=== PATIENT | female | born 1995 | race Caucasian/White ===

== ENCOUNTER 2016-11-01 19:10 | Emergency (ER) | payer SELFPAY ==
--- NOTE | 2016-11-01 19:41 | ER Document Report ---
ED Medical Screen (RME) - General Stated Complaint: FALL//ABDOMINAL PAIN Notes: 21 yo female , 8 weeks c/o right lower abdominal pain. fell down stairs, hit lower abdomen. accident occurred 20 min [employer]. no vaginal discharge. + cramping - Related Data Allergies/Adverse Reactions: No Known Allergies Allergy (Unverified 11/01/16 19:35) Physical Exam - Vital signs Vitals: Temp Pulse Resp BP Pulse Ox 97.5 F 100 16 149/75 H 98 11/01/16 19:19 11/01/16 19:19 11/01/16 19:19 11/01/16 19:19 11/01/16 19:19 Course - Vital Signs Vital signs: Temp Pulse Resp BP Pulse Ox 97.5 F 100 16 149/75 H 98 11/01/16 19:19 11/01/16 19:19 11/01/16 19:19 11/01/16 19:19 11/01/16 19:19
--- NOTE | 2016-11-02 00:16 | ER Document Report ---
ED Fall - General Mode of Arrival: Ambulatory Information source: Patient TRAVEL OUTSIDE OF THE [place] IN LAST 30 DAYS: No - HPI Patient complains to provider of: fall Occurred: Just prior to arrival Associated symptoms: Other - See above <XANDER PEARCE - Last Filed: 11/02/16 00:59> <DAVONTEMARCIO ANN - Last Filed: 11/02/16 02:56> - General Chief Complaint: Fall Stated Complaint: FALL//ABDOMINAL PAIN Notes: Patient is a 21 year old female who presents to the emergency department complaining of a fall just prior to arrival. Patient states that she was trying to do multiple things at once when she fell down a flight of stairs on her back and her side. Patient believes she is about 8 weeks but has not had a proper ultrasound performed or had her first check up. Patient complains of some cramping after the fall and denies any vaginal bleeding. Patient reports she has not started taking pre-elpidio vitamins yet. (XANDER PEARCE) - Related data Allergies/Adverse Reactions: No Known Allergies Allergy (Unverified 11/01/16 19:35) Past Medical History - General Information source: Patient - Social History Smoking Status: Unknown if Ever Smoked Family History: Reviewed & Not Pertinent Patient has suicidal ideation: No Patient has homicidal ideation: No Past Surgical History: Reports: Hx Section <XANDER PEARCE - Last Filed: 11/02/16 00:59> Review of Systems - Review of Systems Constitutional: No symptoms reported EENT: No symptoms reported Cardiovascular: No symptoms reported Respiratory: No symptoms reported Gastrointestinal: See HPI, Abdominal pain Genitourinary: No symptoms reported Female Genitourinary: See HPI, . denies: Vaginal bleeding Musculoskeletal: No symptoms reported Skin: No symptoms reported Hematologic/Lymphatic: No symptoms reported Neurological/Psychological: No symptoms reported -: Yes All other systems reviewed and negative <XANDER PEARCE - Last Filed: 11/02/16 00:59> Physical Exam - Vital signs Interpretation: Normal - General General appearance: Appears well, Alert - HEENT Head: Normocephalic, Atraumatic Eyes: Normal Pupils: PERRL - Respiratory Respiratory status: No respiratory distress Chest status: Nontender Breath sounds: Normal Chest palpation: Normal - Cardiovascular Rhythm: Regular Heart sounds: Normal auscultation Murmur: No - Abdominal Inspection: Normal Distension: No distension Bowel sounds: Normal Tenderness: Nontender Organomegaly: No organomegaly - Back Back: Normal, Nontender - Extremities General upper extremity: Normal inspection, Nontender, Normal color, Normal ROM , Normal temperature General lower extremity: Normal inspection, Nontender, Normal color, Normal ROM , Normal temperature, Normal weight bearing. No: Lea's sign - Neurological Neuro grossly intact: Yes Cognition: Normal Orientation: AAOx4 [place] Coma Scale Eye Opening: Spontaneous [place] Coma Scale Verbal: Oriented [place] Coma Scale Motor: Obeys Commands [place] Coma Scale Total: 15 Speech: Normal Motor strength normal: LUE, RUE, LLE, RLE Sensory: Normal - Psychological Associated symptoms: Normal affect, Normal mood - Skin Skin Temperature: Warm Skin Moisture: Dry Skin Color: Normal <MARCIO ARAUZ - Last Filed: 11/02/16 02:56> - Vital signs Vitals: Temp Pulse Resp BP Pulse Ox 97.5 F 100 16 149/75 H 98 11/01/16 19:19 11/01/16 19:19 11/01/16 19:19 11/01/16 19:19 11/01/16 19:19 Course <XANDER PEARCE - Last Filed: 11/02/16 00:59> <MARCIO ARAUZ - Last Filed: 11/02/16 02:56> - Re-evaluation Re-evalutation: 11/02/16 Patient with no symptoms at this time. Bedside ultrasound showing an intrauterine approximately 8 weeks with a heartbeat of 140. Patient is instructed to follow-up with [facility]YS[facility] and take a vitamin. Understands agrees with plan. Stable for discharge. Return if any worsening or concern turning symptoms. Of note, no bleeding or discharge. (MARCIO ARAUZ) - Vital Signs Vital signs: Temp Pulse Resp BP Pulse Ox 98.9 F 85 18 109/90 H 100 11/02/16 00:29 11/02/16 00:29 11/02/16 00:29 11/02/16 00:29 11/02/16 00:29 - Laboratory Laboratory results interpreted by me: 11/01/16 19:53 Beta HCG, Quant 47172.00 H Procedures - Ultrasound/Bedside Ultrasound/Bedside Ultrasound: Other - IUP. FHR 140. +FM <MARCIO ARAUZ - Last Filed: 11/02/16 02:56> Discharge <XANDER PEARCE - Last Filed: 11/02/16 00:59> <MARCIO ARAUZ - Last Filed: 11/02/16 02:56> - Discharge Clinical Impression: Fall (on) (from) other stairs and steps, initial encounter Qualifiers: Weeks of gestation: 8 weeks Qualified Code(s): Z3A.08 - 8 weeks gestation of Condition: Stable Disposition: HOME, SELF-CARE Instructions: ([facility]), Contusion ([facility]) Prescriptions: Dtx195/FA/Omega3/Dha/Fish Oil [ Gummies] 1 each PO DAILY #90 tab.chew Scribe Attestation: 11/02/16 02:55 I personally performed the services described in the documentation, reviewed and edited the documentation which was dictated to the scribe in my presence, and it accurately records my words and actions. (MARCIO ARAUZ) Scribe Documentation - Scribe Written by Liberty:: liberty Sadler, 11/02/16, 0104 acting as scribe for :: Davonte <XANDER PEARCE - Last Filed: 11/02/16 00:59>
[2016-11-02 00:41] VITALS: BP 109/90
== END 2016-11-02 00:35 | disposition home or self-care (01) ==
LOC: ER 19:10
DX: O26.891 Other specified pregnancy related conditions, first trimester (principal); R10.9 Unspecified abdominal pain; W10.9XXA Fall (on) (from) unspecified stairs and steps, initial encounter; Y92.009 Unspecified place in unspecified non-institutional (private) residence as the place of occurrence of the external cause; Z3A.08 8 weeks gestation of pregnancy
CPT/HCPCS: 36415; 84702; 99284

== ENCOUNTER 2016-11-20 16:11 | Emergency (ER) | payer SELFPAY ==
--- NOTE | 2016-11-20 16:51 | ER Document Report ---
ED Medical Screen (RME) - General Chief Complaint: Vaginal Bleeding Stated Complaint: VAGINAL BLEEDING Notes: Patient thinks she had a miscarriage today while at work. She was sitting at her work desk on the telephone when she noticed she had passed some fluid in went to the bathroom and found a lot of clots and blood. She had no prior bleeding or problems with this . She was approximately 12-13 weeks along in the . This was either her second or third , because she's not sure about 1 possible previous . Does not have any significant abdominal pain or cramping. TRAVEL OUTSIDE OF THE [place] IN LAST 30 DAYS: No - Related Data Allergies/Adverse Reactions: No Known Allergies Allergy (Unverified 11/01/16 19:35) Past Medical History Pulmonary Medical History: Reports: Hx Asthma Renal/ Medical History: Denies: Hx Peritoneal Dialysis Past Surgical History: Reports: Hx Section - Immunizations Hx Diphtheria, Pertussis, Tetanus Vaccination: Yes Physical Exam - Vital signs Vitals: Temp Pulse Resp BP Pulse Ox 98.8 F 130 H 16 155/95 H 99 11/20/16 16:39 11/20/16 16:39 11/20/16 16:39 11/20/16 16:39 11/20/16 16:39 Course - Vital Signs Vital signs: Temp Pulse Resp BP Pulse Ox 98.8 F 130 H 16 155/95 H 99 11/20/16 16:39 11/20/16 16:39 11/20/16 16:39 11/20/16 16:39 11/20/16 16:39
[2016-11-20 17:14] LABS: ABSOLUTE EOSINOPHILS # (AUTO) 0.1 10^3/uL (0.0-0.6); ABSOLUTE LYMPHOCYTES (AUTO) 2.4 10^3/uL (0.5-4.7); ABSOLUTE MONOCYTES (AUTO) 0.6 10^3/uL (0.1-1.4); ABSOLUTE NEUT (AUTO) 4.4 10^3/uL (1.7-8.2); BASOPHILS % (AUTO) 0.6 % (0-2); EOSINOPHILS % (AUTO) 1.7 % (0-6); HEMATOCRIT 37.9 % (36.0-47.0); HEMOGLOBIN 13.2 g/dL (12.0-15.5); HGB HCT DIFFERENCE 1.7; LYMPHOCYTES % (AUTO) 32.1 % (13-45); MEAN CORPUSCULAR HEMOGLOBIN 29.3 pg (27.0-33.4); MEAN CORPUSCULAR HGB CONC 34.9 g/dL (32.0-36.0); MEAN CORPUSCULAR VOLUME 84 fl (80-97); MONOCYTES % (AUTO) 7.8 % (3-13); RED CELL DISTRIBUTION WIDTH 13.1 % (11.5-14.0); SEGMENTED NEUTROPHILS % (AUTO) 57.8 % (42-78); WHITE BLOOD COUNT 7.6 10^3/uL (4.0-10.5)
--- NOTE | 2016-11-20 19:10 | ER Document Report ---
ED GI/ - General Mode of Arrival: Ambulatory Information source: Patient TRAVEL OUTSIDE OF THE [place] IN LAST 30 DAYS: No - HPI Patient complains to provider of: Vaginal bleeding Associated symptoms: Other - See above <XANDER PEARCE - Last Filed: 11/20/16 20:27> <MARCIO ARAUZ - Last Filed: 11/20/16 21:14> - General Chief Complaint: Vaginal Bleeding Stated Complaint: VAGINAL BLEEDING Notes: Patient is a 21 year old female, with a past medical history including endometriosis, who presents to the emergency department complaining of vaginal bleeding onset this afternoon. Patient reports she is about 9 weeks and believes she may have miscarried. Patient states she was at work on the phone when she noticed her legs were sticking, when she went to the bathroom she saw many clots and bleeding. 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 (XANDER PEARCE) - Related Data Allergies/Adverse Reactions: No Known Allergies Allergy (Unverified 11/01/16 19:35) Past Medical History - General Information source: Patient - Social History Smoking Status: Unknown if Ever Smoked Chew tobacco use (# tins/day): No Frequency of alcohol use: None Drug Abuse: None Family History: Reviewed & Not Pertinent Patient has suicidal ideation: No Pulmonary Medical History: Reports: Hx Asthma Renal/ Medical History: Reports: Other - hx endometriosis Past Surgical History: Reports: Hx Section - Immunizations Hx Diphtheria, Pertussis, Tetanus Vaccination: Yes <XANDER PEARCE - Last Filed: 11/20/16 20:27> Review of Systems - Review of Systems Constitutional: No symptoms reported EENT: No symptoms reported Cardiovascular: No symptoms reported Respiratory: No symptoms reported Gastrointestinal: No symptoms reported Genitourinary: No symptoms reported Female Genitourinary: See HPI, Vaginal bleeding Musculoskeletal: No symptoms reported Skin: No symptoms reported Hematologic/Lymphatic: No symptoms reported Neurological/Psychological: No symptoms reported -: Yes All other systems reviewed and negative <XANDER PEARCE - Last Filed: 11/20/16 20:27> Physical Exam <XANDER PEARCE - Last Filed: 11/20/16 20:27> - Vital signs Interpretation: Normal - General General appearance: Appears well, Alert - HEENT Head: Normocephalic, Atraumatic Eyes: Normal Pupils: PERRL - Respiratory Respiratory status: No respiratory distress Chest status: Nontender Breath sounds: Normal Chest palpation: Normal - Cardiovascular Rhythm: Regular Heart sounds: Normal auscultation Murmur: No - Abdominal Inspection: Normal Distension: No distension Bowel sounds: Normal Tenderness: Tender - Mild suprapubic Organomegaly: No organomegaly - Back Back: Normal, Nontender - Extremities General upper extremity: Normal inspection, Nontender, Normal color, Normal ROM , Normal temperature General lower extremity: Normal inspection, Nontender, Normal color, Normal ROM , Normal temperature, Normal weight bearing. No: Lea's sign - Neurological Neuro grossly intact: Yes Cognition: Normal Orientation: AAOx4 [place] Coma Scale Eye Opening: Spontaneous [place] Coma Scale Verbal: Oriented [place] Coma Scale Motor: Obeys Commands [place] Coma Scale Total: 15 Speech: Normal Motor strength normal: LUE, RUE, LLE, RLE Sensory: Normal - Psychological Associated symptoms: Normal affect, Normal mood - Skin Skin Temperature: Warm Skin Moisture: Dry Skin Color: Normal <MARCIO ARAUZ - Last Filed: 11/20/16 21:14> - Vital signs Vitals: Temp Pulse Resp BP Pulse Ox 98.8 F 130 H 16 155/95 H 99 11/20/16 16:39 11/20/16 16:39 11/20/16 16:39 11/20/16 16:39 11/20/16 16:39 - Genitourinary Notes: Patient refuses exam. She will go see an [facility]. (MARCIO ARAUZ) Course - Laboratory Result Diagrams: 11/20/16 16:55 <XANDER PEARCE - Last Filed: 11/20/16 20:27> - Laboratory Result Diagrams: 11/20/16 16:55 - Diagnostic Test Radiology reviewed: Image reviewed, Reports reviewed <MARCIO ARAUZ - Last Filed: 11/20/16 21:14> - Re-evaluation Re-evalutation: 11/20/16 Patient had an ultrasound that is consistent with demise. Patient is O positive and does not require rhogam. Patient does not want a pelvic exam this time. She'll be discharged home to follow-up with [facility]. Patient has been given a copy of her blood work and ultrasound. She will be given pain medication as well. Return if any worsening or concerning symptoms. Not tachycardic at this time. (MARCIO ARAUZ) - Vital Signs Vital signs: Temp Pulse Resp BP Pulse Ox 99.5 F 87 20 125/72 100 11/20/16 19:23 11/20/16 19:23 11/20/16 19:23 11/20/16 19:23 11/20/16 19:23 - Laboratory Laboratory results interpreted by me: 11/20/16 11/20/16 16:55 19:02 Beta HCG, Quant 1322.80 H Urine Blood LARGE H Ur Leukocyte Esterase TRACE H Discharge <XANDER PEARCE - Last Filed: 11/20/16 20:27> <MARCIO ARAUZ - Last Filed: 11/20/16 21:14> - Discharge Clinical Impression: Miscarriage Condition: Stable Disposition: HOME, SELF-CARE Instructions: Miscarriage Impending ([facility]), Miscarriage ([facility]) Prescriptions: Hydrocodone/Acetaminophen [Lortab 7.5-325 mg Tablet] 1 each PO BIDP PRN #14 tablet PRN Reason: Referrals: [facility] [Provider Group] - Follow up in 3-5 days Scribe Attestation: 11/20/16 21:14 I personally performed the services described in the documentation, reviewed and edited the documentation which was dictated to the scribe in my presence, and it accurately records my words and actions. (MARCIO ARAUZ) Scribe Documentation - Scribe Written by Liberty:: liberty Sadler, 11/20/162029 acting as scribe for :: Apoorva <XANDER PEARCE - Last Filed: 11/20/16 20:27>
[2016-11-20 19:24] VITALS: BP 125/72
[2016-11-20 19:29] LABS: APPEARANCE,URINE CLEAR; BILIRUBIN,URINE NEGATIVE (NEGATIVE); GLUCOSE, URINE NEGATIVE (NEGATIVE); KETONES,URINE NEGATIVE (NEGATIVE); LEUKOCYTE ESTERASE,URINE TRACE (NEGATIVE); NITRITE,URINE NEGATIVE (NEGATIVE); PROTEIN,URINE NEGATIVE (NEGATIVE); URINE SPECIFIC GRAVITY 1.005; UROBILINOGEN,URINE NEGATIVE mg/dL (<2.0)
== END 2016-11-20 20:04 | disposition home or self-care (01) ==
LOC: ER 16:11
DX: O03.9 Complete or unspecified spontaneous abortion without complication (principal)
CPT/HCPCS: 36415; 76801; 81001; 84702; 85025; 86900; 86901; 99284

== ENCOUNTER 2017-07-10 21:29 | Emergency (ER) | payer MEDICAID ==
[2017-07-10 22:00] VITALS: BP 123/69
--- NOTE | 2017-07-10 22:33 | ER Document Report ---
HPI - HPI Patient complains to provider of: Anal pain Onset: Last week Onset/Duration: Gradual Pain Level: 3 Context: 22-year-old female that has been having 3-4 episodes of diarrhea per day for a week is now complaining of anal pain. She assumed it was a hemorrhoid. No abdominal pain. No fever or chills. No recent antibiotics. Hemorrhoid cream is not helping. Abstinent for over 6 months. No history of herpes. Associated Symptoms: None Exacerbated by: Other - Wiping with toilet paper Relieved by: Denies - ROS ROS below otherwise negative: Yes Systems Reviewed and Negative: Yes All other systems reviewed and negative Past Medical History - General Information source: Patient - Social History Smoking Status: Never Smoker Frequency of alcohol use: None Drug Abuse: None Lives with: Family Family History: Reviewed & Not Pertinent Pulmonary Medical History: Reports: Hx Asthma Renal/ Medical History: Denies: Hx Peritoneal Dialysis Past Surgical History: Reports: Hx Section - Immunizations Hx Diphtheria, Pertussis, Tetanus Vaccination: Yes Vertical Provider Document - CONSTITUTIONAL Agree With Documented VS: Yes Exam Limitations: No Limitations General Appearance: No Apparent Distress - INFECTION CONTROL TRAVEL OUTSIDE OF THE [place] IN LAST 30 DAYS: No - HEENT HEENT: Normocephalic - NECK Neck: Supple. negative: Lymphadenopathy-Left, Lymphadenopathy-Right - RESPIRATORY Respiratory: Breath Sounds Normal, No Respiratory Distress O2 Sat by Pulse Oximetry: 98 - CARDIOVASCULAR Cardiovascular: Regular Rate, Regular Rhythm - GI/ABDOMEN Gastrointestinal: Abdomen Non-Tender - BACK Back: Normal Inspection - MUSCULOSKELETAL/EXTREMETIES Musculoskeletal/Extremeties: MAEW, FROM - NEURO Level of Consciousness: Awake, Alert - DERM Integumentary: Rash - perianal shallow erythematous lesions, non tender, non engorged external hemorrhoid Course - Vital Signs Vital signs: Temp Pulse Resp BP Pulse Ox 99.4 F 108 H 16 123/69 98 07/10/17 21:55 07/10/17 21:55 07/10/17 21:55 07/10/17 21:55 07/10/17 21:55 Discharge - Discharge Clinical Impression: diarrhea, small external hemorrhoid, Perianal excoriation Condition: Good Disposition: HOME, SELF-CARE Instructions: Contact Dermatitis ([facility]), Ciprofloxacin ([facility]), Diarrhea, Nonspecific ([facility]), Family Physicians / Practices, Gastroenterology, Hemorrhoids ([facility]) Additional Instructions: rinse anal skin pat dry put the hydrocortisone cream on then put onthe zinc oxide cream thickly cipro for three days to er if worse see gastroenterolgist if persists Prescriptions: Ciprofloxacin HCl [Cipro 500 mg Tablet] 500 mg PO BID #5 tablet Referrals: OMAIRA MILLER MD [ACTIVE STAFF] - Follow up as needed
[2017-07-10] MEDS ORDERED: CIPROFLOXACIN HCL 500 MG TABLET PO ONE (22:42)
[2017-07-10] MEDS ORDERED: ZINC OXIDE 20% OINTMENT 28.35 GM TP ONE (22:43)
[2017-07-10] MEDS ORDERED: HYDROCORTISONE 1% CREAM 28.35 GM TP ONE (22:43)
[2017-07-10] MEDS ORDERED: HYDROCORTISONE 1% CREAM 28.35 GM ONE (23:09)
[2017-07-10] MEDS ORDERED: ZINC OXIDE 20% OINTMENT 28.35 GM ONE (23:09)
== END 2017-07-10 23:19 | disposition home or self-care (01) ==
LOC: ER 21:29
DX: R19.7 Diarrhea, unspecified (principal); K64.4 Residual hemorrhoidal skin tags; K62.89 Other specified diseases of anus and rectum
CPT/HCPCS: 99282; J3490

== ENCOUNTER 2017-07-16 17:43 | Emergency (ER) | payer MEDICAID ==
[2017-07-16 18:05] VITALS: BP 138/81
[2017-07-16] MEDS ORDERED: LIDOCAINE 1% INJ-PF (10 MG/ML) 30 ML SDV INJ ONE (20:50)
[2017-07-16] MEDS ORDERED: AZITHROMYCIN 250 MG TABLET PO ONE (20:50)
[2017-07-16] MEDS ORDERED: CEFTRIAXONE INJ 250 MG VIAL IM ONE (20:50)
[2017-07-16] MEDS ORDERED: ACYCLOVIR 200 MG CAPSULE PO ONE (20:50)
--- NOTE | 2017-07-16 20:56 | ER Document Report ---
ED Skin Rash/Insect Bite/Abscs - General Chief Complaint: Rash Stated Complaint: RASH Time Seen by Provider: 07/16/17 20:39 Mode of Arrival: Ambulatory Information source: Patient Notes: 22-year-old female presents to ED for complaint of rash to the labia buttocks and now thighs. She states it has been there for about 2-1/2 weeks. She states she was seen about a week ago and was told that she had a GI infection and was put on medicine and the rash is actually gotten worse. She states she also is about 4 days late for. Says she took a home test and it was positive today. TRAVEL OUTSIDE OF THE [place] IN LAST 30 DAYS: No - HPI Patient complains to provider of: Skin rash/lesion - Labia buttocks and thighs Onset: Other Onset/Duration: Gradual - 2-1/2 weeks, Worse Quality of pain: Sharp, Throbbing Severity: Moderate Pain Level: 2 Skin Character: Vesicular - Vesicular type rash to the labia buttocks and thighs Quality of rash: Itchy, Painful Identify cause: No Exacerbated by: Denies Relieved by: Denies Similar symptoms previously: Yes Recently seen / treated by doctor: Yes - Related Data Allergies/Adverse Reactions: No Known Allergies Allergy (Verified 07/16/17 17:44) Past Medical History - General Information source: Patient - Social History Smoking Status: Never Smoker Cigarette use (# per day): No Chew tobacco use (# tins/day): No Smoking Education Provided: No Frequency of alcohol use: None Drug Abuse: None Lives with: Family Family History: Reviewed & Not Pertinent Patient has suicidal ideation: No Patient has homicidal ideation: No - Past Medical History Cardiac Medical History: Reports: None Pulmonary Medical History: Reports: Hx Asthma EENT Medical History: Reports: None Neurological Medical History: Reports: None Endocrine Medical History: Reports: None Renal/ Medical History: Reports: None Malignancy Medical History: Reports: None GI Medical History: Reports: None Musculoskeltal Medical History: Reports None Skin Medical History: Reports None Psychiatric Medical History: Reports: None Traumatic Medical History: Reports: None Infectious Medical History: Reports: None Past Surgical History: Reports: Hx Section - Immunizations Immunizations up to date: Yes Hx Diphtheria, Pertussis, Tetanus Vaccination: Yes Review of Systems - Review of Systems Constitutional: No symptoms reported EENT: No symptoms reported Cardiovascular: No symptoms reported Respiratory: No symptoms reported Gastrointestinal: No symptoms reported Genitourinary: No symptoms reported Female Genitourinary: Last menstrual period - Patient is 4 days late for menstrual cycle., Other - Vesicular rash to labia buttocks and thighs Musculoskeletal: No symptoms reported Skin: No symptoms reported Hematologic/Lymphatic: No symptoms reported Neurological/Psychological: No symptoms reported Physical Exam - Vital signs Vitals: Temp Pulse Resp BP Pulse Ox 100.1 F 114 H 17 138/81 H 97 07/16/17 18:04 07/16/17 18:04 07/16/17 18:04 07/16/17 18:04 07/16/17 18:04 Interpretation: Normal - General General appearance: Appears well, Alert - HEENT Head: Normocephalic, Atraumatic Eyes: Normal Pupils: PERRL - Respiratory Respiratory status: No respiratory distress Chest status: Nontender Breath sounds: Normal Chest palpation: Normal - Cardiovascular Rhythm: Regular Heart sounds: Normal auscultation Murmur: No - Abdominal Inspection: Normal Distension: No distension Bowel sounds: Normal Tenderness: Nontender Organomegaly: No organomegaly - Genitourinary External exam: Lesions - Vesicular herpetic type rash to the labia buttocks and thighs - Back Back: Normal, Nontender - Extremities General upper extremity: Normal inspection, Nontender, Normal color, Normal ROM , Normal temperature General lower extremity: Normal inspection, Nontender, Normal color, Normal ROM , Normal temperature, Normal weight bearing. No: Lea's sign - Neurological Neuro grossly intact: Yes Cognition: Normal Orientation: AAOx4 [place] Coma Scale Eye Opening: Spontaneous [place] Coma Scale Verbal: Oriented [place] Coma Scale Motor: Obeys Commands [place] Coma Scale Total: 15 Speech: Normal Motor strength normal: LUE, RUE, LLE, RLE Sensory: Normal - Psychological Associated symptoms: Normal affect, Normal mood - Skin Skin Temperature: Warm Skin Moisture: Dry Skin Color: Normal Course - Re-evaluation Re-evalutation: 07/17/17 02:15 Patient was treated with acyclovir, azithromycin, and Rocephin. Patient's urine was positive for . Her urine was very dirty and was supposed to be a clean catch but it had too many squamous cells. Patient has no urinary symptoms such is frequency urgency or pain with urination except for to the external area where the blisters are. Patient instructed to follow-up with OB/ [facility] in a primary doctor and if she develops any urinary symptoms to be seen right away. Viral culture sent for herpes. Patient left before her GC and chlamydia results were back and she is positive for chlamydia but she has been treated. - Vital Signs Vital signs: Temp Pulse Resp BP Pulse Ox 100.1 F 114 H 17 138/81 H 97 07/16/17 18:04 07/16/17 18:04 07/16/17 18:04 07/16/17 18:04 07/16/17 18:04 - Laboratory Laboratory results interpreted by me: 07/16/17 07/16/17 20:49 20:57 Urine Ketones 20 H Urine Urobilinogen 2.0 H Ur Leukocyte Esterase LARGE H Urine HCG, Qual POSITIVE H Chlamydia DNA (PCR) DETECTED H Discharge - Discharge Clinical Impression: Genital herpes Qualifiers: Herpes simplex infection site: unspecified Qualified Code(s): A60.00 - Herpesviral infection of urogenital system, unspecified Qualifiers: Weeks of gestation: unspecified Qualified Code(s): Z34.90 - Encounter for supervision of normal , unspecified, unspecified trimester Condition: Stable Disposition: HOME, SELF-CARE Instructions: [facility] [place] Additional Instructions: Genital Herpes Your exam suggests that you have a herpes infection. A culture can confirm the diagnosis. Herpes is caused by a virus, and can be transmitted sexually. After the initial infection has healed, the virus often erupts at the same location from time to time. Herpes can be treated with anti-viral medication. The medicine can be used as pills or ointment. It's most effective if started with the first symptoms of the attack. It is not a "cure" -- it simply shortens the length of the illness. If this is not your first attack, the medicine may not help you. In the female, herpes can infect the baby as it passes through the canal, causing a life-threatening disease. You should inform the crop roller that you've had herpes should you (or your spouse) become . Sexual contact should be avoided any time the sores are present, but the virus may be contagious even at other times. The use of condoms may help prevent infection in your partner. Acyclovir Acyclovir (Zovirax) is used to treat infections caused by the Herpes family of viruses. It's available as capsules or ointment. Zovirax is most effective if started at the first sign of the viral outbreak. It can decrease the severity and duration of symptoms. However, it doesn't eliminate the virus from the body completely. If you're prone to repeated outbreaks of herpes, you'll continue to have attacks. Apply ointment with a disposable glove or finger-cot to avoid spreading the virus with your finger. If pills have been prescribed, take them for the full recommended course. Occasionally, mild nausea or headaches may occur. Call the doctor if you develop wheezing, itching, rash, shortness of breath , or lightheadedness. VAGINITIS: Your exam shows that you have vaginitis, a vaginal infection. The infection can be caused by a many different organisms, including trichomonas or Gardnerella. The usual symptoms are vaginal irritation and discharge. The treatment is usually antibiotics such as Flagyl. Laboratory tests can determine which germ is responsible. Use the medication as prescribed. Because this infection can be transmitted sexually, your sexual partner may need to be checked and treated also. If your physician has not discussed this with you, please check before resuming sexual relations. If a culture shows gonorrhea or chlamydia, the infection must be reported to the health department. Call the doctor if you develop pelvic pain, fever, or problems with urination, or if you don't improve as expected. CEPHALOSPORINS: An antibiotic of the cephalosporin class has been prescribed. This type of antibiotic covers a wide variety of infections, including those of the skin, lungs, middle ear, and urinary tract. This antibiotic is somewhat similar to the penicillin family. In rare cases , a person who is allergic to penicillin will also be allergic to this medication. If you have had a severe allergic reaction to penicillin, and have not taken this antibiotic since that time, notify your doctor. Antibiotics which cover many germs ("broad spectrum" antibiotics) are more likely to cause diarrhea or "yeast" infections. Women prone to vaginal yeast problems may suffer an attack after taking this antibiotic. In infants, oral thrush (white spots "stuck" on the cheek) or yeast diaper rash may result. See your doctor if these problems occur. Call the doctor at once if you develop hives, itching, shortness of breath , or lightheadedness. AZITHROMYCIN: Azithromycin (Zithromax) is a broad spectrum antibiotic in the same class as erythromycin. It can treat a variety of bacterial infections, but is most frequently used for respiratory infections. Azithromycin is extremely long-lasting. It accumulates in body tissues and continues to kill bacteria for many days. In order to improve absorption, Azithromycin should be taken at least one hour before or two hours after a meal. It does not have the same strong tendency to upset the stomach as erythromycin and is usually very well tolerated. Patients who have had a rash or other true allergic reactions to erythromycin should not take this medication. Call if you develop gastrointestinal distress, severe diarrhea, rash, hives, itching, or shortness of breath. FOLLOW-UP CARE: If you have been referred to a physician for follow-up care, call the physician s office for an appointment as you were instructed or within the next two days. If you experience worsening or a significant change in your symptoms, notify the physician immediately or return to the Emergency Department at any time for re-evaluation. Prescriptions: Acyclovir 800 mg PO BID #14 tablet Forms: Elevated Blood Pressure Referrals: [facility] [Provider Group] - Follow up as needed
[2017-07-16 21:29] LABS: APPEARANCE,URINE CLOUDY; BILIRUBIN,URINE NEGATIVE (NEGATIVE); GLUCOSE, URINE NEGATIVE (NEGATIVE); KETONES,URINE 20 mg/dL (NEGATIVE); LEUKOCYTE ESTERASE,URINE LARGE (NEGATIVE); NITRITE,URINE NEGATIVE (NEGATIVE); PROTEIN,URINE NEGATIVE (NEGATIVE); URINE SPECIFIC GRAVITY 1.024
== END 2017-07-16 22:22 | disposition home or self-care (01) ==
LOC: ER 17:43
DX: A60.00 Herpesviral infection of urogenital system, unspecified (principal); Z32.01 Encounter for pregnancy test, result positive
CPT/HCPCS: 99283; 96372; 87210; 81025; 81001; 87250; 87491; 87591; Q0144; J3490; J0696

== ENCOUNTER 2017-08-01 20:25 | Emergency (ER) | payer SELFPAY ==
[2017-08-01 22:36] LABS: ABSOLUTE BASOPHILS # (AUTO) 0.1 10^3/uL (0.0-0.2); ABSOLUTE EOSINOPHILS # (AUTO) 0.1 10^3/uL (0.0-0.6); ABSOLUTE LYMPHOCYTES (AUTO) 3.4 10^3/uL (0.5-4.7); ABSOLUTE NEUT (AUTO) 8.8 10^3/uL (1.7-8.2); BASOPHILS % (AUTO) 0.9 % (0-2); EOSINOPHILS % (AUTO) 0.7 % (0-6); HEMATOCRIT 38.1 % (36.0-47.0); HEMOGLOBIN 12.8 g/dL (12.0-15.5); HGB HCT DIFFERENCE 0.3; LYMPHOCYTES % (AUTO) 25.1 % (13-45); MEAN CORPUSCULAR HEMOGLOBIN 28.6 pg (27.0-33.4); MEAN CORPUSCULAR HGB CONC 33.6 g/dL (32.0-36.0); MEAN CORPUSCULAR VOLUME 85 fl (80-97); MONOCYTES % (AUTO) 7.6 % (3-13); RED BLOOD COUNT 4.46 10^6/uL (3.72-5.28); RED CELL DISTRIBUTION WIDTH 14.5 % (11.5-14.0); SEGMENTED NEUTROPHILS % (AUTO) 65.7 % (42-78); WHITE BLOOD COUNT 13.4 10^3/uL (4.0-10.5)
--- NOTE | 2017-08-01 22:38 | ER Document Report ---
ED GI/ - General Chief Complaint: Abdominal Pain Stated Complaint: STOMACH PAIN Time Seen by Provider: 08/01/17 22:23 Notes: Patient is a 22-year-old female, , that comes emergency department for chief complaint of lower abdominal/pelvic pain and vaginal spotting that started this evening. She states she is about 10-14 weeks , has had a positive urine test. She denies fever or chills, she states she has intermittent vomiting but this is normal current , she denies flank pain, dysuria, vaginal discharge. Past medical history of and first trimester miscarriages. TRAVEL OUTSIDE OF THE [place] IN LAST 30 DAYS: No - Related Data Allergies/Adverse Reactions: No Known Allergies Allergy (Verified 07/16/17 17:44) Past Medical History - General Information source: Patient - Social History Smoking Status: Never Smoker Frequency of alcohol use: None Drug Abuse: None Lives with: Family Family History: Reviewed & Not Pertinent Pulmonary Medical History: Reports: Hx Asthma Renal/ Medical History: Denies: Hx Peritoneal Dialysis Past Surgical History: Reports: Hx Section - Immunizations Immunizations up to date: Yes Hx Diphtheria, Pertussis, Tetanus Vaccination: Yes Review of Systems - Review of Systems Constitutional: No symptoms reported EENT: No symptoms reported Cardiovascular: No symptoms reported Respiratory: No symptoms reported Gastrointestinal: See HPI Genitourinary: See HPI Female Genitourinary: See HPI Musculoskeletal: No symptoms reported Skin: No symptoms reported Hematologic/Lymphatic: No symptoms reported Neurological/Psychological: No symptoms reported Physical Exam - Vital signs Vitals: Temp Pulse Resp BP Pulse Ox 99.2 F 87 18 141/81 H 100 08/01/17 20:44 08/01/17 20:44 08/01/17 20:44 08/01/17 20:44 08/01/17 20:44 Interpretation: Normal - General General appearance: Appears well, Alert In distress: None - HEENT Head: Normocephalic, Atraumatic Eyes: Normal Pupils: PERRL - Respiratory Respiratory status: No respiratory distress Chest status: Nontender Breath sounds: Normal Chest palpation: Normal - Cardiovascular Rhythm: Regular Heart sounds: Normal auscultation Murmur: No - Abdominal Inspection: Normal Distension: No distension Bowel sounds: Normal Tenderness: Tender - Minimal mid to right sided abdominal/pelvic tenderness, nonspecific, no guarding, no rigidity, no rebound tenderness Organomegaly: No organomegaly - Back Back: Normal, Nontender. No: Tender, CVA tenderness - Extremities General upper extremity: Normal inspection, Nontender, Normal color, Normal ROM , Normal temperature General lower extremity: Normal inspection, Nontender, Normal color, Normal ROM , Normal temperature, Normal weight bearing. No: Lea's sign - Neurological Neuro grossly intact: Yes Cognition: Normal Orientation: AAOx4 [place] Coma Scale Eye Opening: Spontaneous [place] Coma Scale Verbal: Oriented [place] Coma Scale Motor: Obeys Commands [place] Coma Scale Total: 15 Speech: Normal Motor strength normal: LUE, RUE, LLE, RLE Sensory: Normal - Psychological Associated symptoms: Normal affect, Normal mood - Skin Skin Temperature: Warm Skin Moisture: Dry Skin Color: Normal Course - Re-evaluation Re-evalutation: CBC shows mild leukocytosis, nonspecific. There is mild mid to lower abdominal tenderness without guarding. Patient is smiling, talkative, well-appearing. Low suspicion of acute abdomen. Urinalysis unremarkable. HCG is elevated appropriately. Chemistry generally unremarkable. Ultrasound showing intrauterine at 6 weeks 6 days with subchorionic hemorrhage. No other abnormalities noted. On reevaluation patient continues to be very well-appearing, still has benign abdomen. I suspect her symptoms are from the subchorionic hemorrhage. RhoGam not indicated. Discussed all results with patient in detail. Patient took everything in stride, seems very familiar with this type of situation, states she understands follow-up and return precautions. - Vital Signs Vital signs: Temp Pulse Resp BP Pulse Ox 99.2 F 100 18 128/92 H 99 08/01/17 20:44 08/02/17 01:22 08/01/17 20:44 08/02/17 01:22 08/02/17 01:22 - Laboratory Result Diagrams: 08/01/17 22:25 08/01/17 22:25 Laboratory results interpreted by me: 08/01/17 08/01/17 08/01/17 22:25 22:25 22:45 WBC 13.4 H RDW 14.5 H Absolute Neutrophils 8.8 H BUN 6 L Beta HCG, Quant 72349.00 H Urine Ketones TRACE H Ur Leukocyte Esterase TRACE H Urine Ascorbic Acid 40 H Discharge - Discharge Clinical Impression: Vaginal bleeding before 22 weeks gestation, Pelvic cramping Condition: Stable Disposition: HOME, SELF-CARE Additional Instructions: Your ultrasound shows a living in the uterus, also shows a subchorionic hemorrhage, this is most likely the cause of your discomfort. Perform pelvic rest, avoid intercourse, jumping, running, lifting, or any significant physical activity until cleared to do so by POUL[employer] HATCHERY MAN. Your blood type is O+. Return to the emergency department for any concerning or worsening symptoms including severe pain, passing out, swelling of the abdomen, fever, or any other concerning symptoms.
[2017-08-01 22:51] LABS: ALANINE AMINOTRANSFERASE 29 U/L (9-52); ALBUMIN 4.2 g/dL (3.5-5.0); ALKALINE PHOSPHATASE 78 U/L (38-126); ANION GAP 12 (5-19); ASPARTATE AMINO TRANSFERASE 21 U/L (14-36); BILIRUBIN,DIRECT 0.2 mg/dL (0.0-0.4); BILIRUBIN,TOTAL 0.4 mg/dL (0.2-1.3); BLOOD UREA NITROGEN 6 mg/dL (7-20); CALCIUM 9.3 mg/dL (8.4-10.2); CARBON DIOXIDE 22 mmol/L (22-30); CHLORIDE 105 mmol/L (98-107); CREATININE RESULT 0.53 mg/dL (0.52-1.25); GLUCOSE 90 mg/dL (75-110); LIPASE 75.9 U/L (23-300); SODIUM 138.6 mmol/L (137-145); TOTAL PROTEIN 7.3 g/dL (6.3-8.2)
[2017-08-01 23:24] LABS: APPEARANCE,URINE SLIGHTLY-CLOUDY; BILIRUBIN,URINE NEGATIVE (NEGATIVE); CALCIUM OXALATE CRYSTALS,URINE FEW /HPF; GLUCOSE, URINE NEGATIVE (NEGATIVE); KETONES,URINE TRACE mg/dL (NEGATIVE); LEUKOCYTE ESTERASE,URINE TRACE (NEGATIVE); NITRITE,URINE NEGATIVE (NEGATIVE); PROTEIN,URINE NEGATIVE (NEGATIVE); URINE SPECIFIC GRAVITY 1.024; UROBILINOGEN,URINE NEGATIVE mg/dL (<2.0)
--- NOTE | 2017-08-02 00:39 | RADIOLOGY REPORT (SQ) ---
EXAM DESCRIPTION: U/S OB TRANSVAG W/DOPPLER CLINICAL HISTORY: 22 years, Female, pelvic pain, vaginal bleeding quantitative beta-hC COMPARISON: 11/20/2016. TECHNIQUE: Transvaginal LIMITATIONS: None. FINDINGS: Living intrauterine fetus with crown-rump length of 0.9 cm corresponds with a gestational age of six weeks and six days, KULWINDER of 03/21/2018, and cardiac activity of 123 bpm. There is a 1.9 x 1.3 x 0.6 and measures subchorionic hemorrhage. Cervical length is 2.6 cm. Nabothian cysts. 3.4 cm right ovary with 1.9 cm corpus luteal cyst (for which no followup imaging recommended) and 2.6 cm left ovary appear otherwise unremarkable. IMPRESSION: Living intrauterine gestation measures 6w 6d with KULWINDER of 03/21/2018; there is a 1.9 cm perigestational hemorrhage. 2011 [employer]- All Rights Reserved
[2017-08-02 01:28] VITALS: BP 128/92
== END 2017-08-02 01:29 | disposition home or self-care (01) ==
LOC: ER 20:25
DX: O20.8 Other hemorrhage in early pregnancy (principal); O26.891 Other specified pregnancy related conditions, first trimester; R10.2 Pelvic and perineal pain; O21.9 Vomiting of pregnancy, unspecified; O99.111 Other diseases of the blood and blood-forming organs and certain disorders involving the immune mechanism complicating pregnancy, first trimester; D72.829 Elevated white blood cell count, unspecified; O99.511 Diseases of the respiratory system complicating pregnancy, first trimester; J45.909 Unspecified asthma, uncomplicated; Z3A.01 Less than 8 weeks gestation of pregnancy
CPT/HCPCS: 36415; 76817; 80053; 81001; 83690; 84702; 85025; 86900; 86901; 93976; 99284

== ENCOUNTER 2017-08-08 10:42 | Emergency (ER) | payer SELFPAY ==
--- NOTE | 2017-08-08 11:16 | ER Document Report ---
ED Medical Screen (RME) - General Chief Complaint: Vag Bleeding, +preg <12wks Stated Complaint: VAGINAL BLEEDING Notes: 22-year-old female currently in her first trimester here with complaints of continued vaginal spotting and lower abdominal pain. She denies any blood clots or tissue and states "it is just spotting". Per chart review, she had an ultrasound that did show a [place]-gestational bleed on August 01, 2017. Her hCG at that time was approximately 50,000. She has a history of multiple first trimester miscarriages 2. EXAM: Minimal suprapubic TTP No peritoneal signs TRAVEL OUTSIDE OF THE [place] IN LAST 30 DAYS: No - Related Data Allergies/Adverse Reactions: latex Allergy (Verified 08/08/17 11:04) Past Medical History - Social History Frequency of alcohol use: None Drug Abuse: None Pulmonary Medical History: Reports: Hx Asthma Renal/ Medical History: Denies: Hx Peritoneal Dialysis Past Surgical History: Reports: Hx Section, Hx Tonsillectomy - adenoids - Immunizations Immunizations up to date: Yes Hx Diphtheria, Pertussis, Tetanus Vaccination: Yes Physical Exam - Vital signs Vitals: Temp Pulse Resp BP Pulse Ox 98.5 F 89 16 137/79 H 98 08/08/17 10:47 08/08/17 10:47 08/08/17 10:47 08/08/17 10:47 08/08/17 10:47 Course - Vital Signs Vital signs: Temp Pulse Resp BP Pulse Ox 98.5 F 89 16 137/79 H 98 08/08/17 10:47 08/08/17 10:47 08/08/17 10:47 08/08/17 10:47 08/08/17 10:47
--- NOTE | 2017-08-08 11:41 | ER Document Report ---
ED General - General Mode of Arrival: Ambulatory Information source: Patient TRAVEL OUTSIDE OF THE [place] IN LAST 30 DAYS: No <IESHA HYMAN - Last Filed: 08/08/17 13:54> <GUNNER SWAN - Last Filed: 08/08/17 14:42> - General Chief Complaint: Vag Bleeding, +preg <12wks Stated Complaint: VAGINAL BLEEDING Time Seen by Provider: 08/08/17 11:20 Notes: Patient is a 22 year old female with a history of miscarriages presents to the emergency department complaining of lower abdominal pain and vaginal bleeding while . Patient was last seen in the emergency department on 2016 for similar issues and told to return if the symptoms worsened. Patient states that her vaginal bleeding is the same and describes it as spotting although the abdominal pain has worsened. Patient is A2. (YENNIIESHA) - Related Data Allergies/Adverse Reactions: latex Allergy (Verified 08/08/17 11:04) Past Medical History - General Information source: Patient - Social History Smoking Status: Never Smoker Frequency of alcohol use: None Drug Abuse: None Family History: Reviewed & Not Pertinent Patient has suicidal ideation: No Patient has homicidal ideation: No Pulmonary Medical History: Reports: Hx Asthma Past Surgical History: Reports: Hx Section, Hx Tonsillectomy - adenoids - Immunizations Immunizations up to date: Yes Hx Diphtheria, Pertussis, Tetanus Vaccination: Yes <IESHA HYMAN - Last Filed: 08/08/17 13:54> Review of Systems - Review of Systems Constitutional: No symptoms reported EENT: No symptoms reported Cardiovascular: No symptoms reported Respiratory: No symptoms reported Gastrointestinal: See HPI, Abdominal pain Genitourinary: No symptoms reported Female Genitourinary: See HPI, , Vaginal bleeding Musculoskeletal: No symptoms reported Skin: No symptoms reported Hematologic/Lymphatic: No symptoms reported Neurological/Psychological: No symptoms reported -: Yes All other systems reviewed and negative <IESHA HYMAN - Last Filed: 08/08/17 13:54> Physical Exam - General General appearance: Appears well, Alert In distress: None - HEENT Head: Normocephalic, Atraumatic Eyes: Normal Conjunctiva: Normal Pupils: PERRL - Respiratory Respiratory status: No respiratory distress Chest status: Nontender Breath sounds: Normal Chest palpation: Normal - Cardiovascular Rhythm: Regular Heart sounds: Normal auscultation - Abdominal Inspection: Normal Distension: No distension Bowel sounds: Normal Tenderness: Tender - tender in the RLQ Organomegaly: No organomegaly - Back Back: Normal - Extremities General upper extremity: Normal ROM General lower extremity: Normal ROM - Neurological Neuro grossly intact: Yes Cognition: Normal Orientation: AAOx4 [place] Coma Scale Eye Opening: Spontaneous [place] Coma Scale Verbal: Oriented [place] Coma Scale Motor: Obeys Commands [place] Coma Scale Total: 15 Speech: Normal - Psychological Associated symptoms: Normal affect, Normal mood - Skin Skin Temperature: Warm Skin Moisture: Dry Skin Color: Normal <IESHA HYMAN - Last Filed: 08/08/17 13:54> - Vital signs Vitals: Temp Pulse Resp BP Pulse Ox 98.5 F 89 16 137/79 H 98 08/08/17 10:47 08/08/17 10:47 08/08/17 10:47 08/08/17 10:47 08/08/17 10:47 Course - Diagnostic Test Radiology reviewed: Reports reviewed - Transvaginal ultrasound shows a 7 week 6 day intrauterine with heart rate of 152. There is subchorionic bleed which has gotten smaller since the last ultrasound. There is a stable complex cyst in the right adnexa measuring 2.1 cm, probably a hemorrhagic corpus luteum cyst. <GUNNER SWAN - Last Filed: 08/08/17 14:42> - Vital Signs Vital signs: Temp Pulse Resp BP Pulse Ox 98.5 F 89 16 137/79 H 98 08/08/17 10:47 08/08/17 10:47 08/08/17 10:47 08/08/17 10:47 08/08/17 10:47 Discharge <IESHA HYMAN - Last Filed: 08/08/17 13:54> <GUNNER SWAN - Last Filed: 08/08/17 14:42> - Discharge Clinical Impression: Hemorrhage of corpus luteum cyst, Less than 8 weeks gestation of , Right lower quadrant abdominal pain, Vaginal bleeding before 22 weeks gestation Condition: Stable Disposition: HOME, SELF-CARE Additional Instructions: Your ultrasound shows a 7 week 6 day live intrauterine . The subchorionic hemorrhage seen previously has gotten smaller. You have a hemorrhagic cyst in the right adnexal region which is probably causing her discomfort. It has remained stable compared to the previous ultrasound. Take the pain medication as prescribed if needed. Follow-up with [facility] this week if the pain continues to be a problem. RETURN TO THE EMERGENCY ROOM IF ANY NEW OR WORSENING SYMPTOMS. Prescriptions: Hydrocodone/Acetaminophen [Hydrocodon-Acetaminophen 5-325] 1 each PO Q4 PRN #12 tablet PRN Reason: Referrals: [facility] [Provider Group] - Follow up as needed Scribe Attestation: 08/08/17 13:35 I personally performed the services described in the documentation, reviewed and edited the documentation which was dictated to the scribe in my presence, and it accurately records my words and actions. (GUNNER SWAN) Scribe Documentation - Scribe Written by Mayo:: Mayo Enriquez, 08/08/2017 11:47 acting as scribe for :: Carla <IESHA HYMAN - Last Filed: 08/08/17 13:54>
--- NOTE | 2017-08-08 14:30 | RADIOLOGY REPORT (SQ) ---
EXAM DESCRIPTION: U/S OB TRANSVAGINAL W/O DOP COMPLETED DATE/TIME: 08/08/2017 2:19 pm REASON FOR STUDY: Bleeding, R pelvic or adnexal pain getting worse COMPARISON: 08/01/2017. TECHNIQUE: Transvaginal static and realtime grayscale images acquired of the pelvis. Additional josephine cted spectral and color Doppler images recorded. All images stored on PACs. bHCG: Not applicable. LIMITATIONS: None. FINDINGS: FETUS: Living intrauterine . EGA: 7 week 6 day. KULWINDER: 03/21/2018. FHR: 152 beats per minute. SUBCHORIONIC BLEED: Yes. SIZE OF BLEED: 0.2 x 1.6 cm. UTERUS: No masses. No anomalies. CERVICAL LENGTH: 3.8 cm. Closed. RIGHT ADNEXA: Normal ovary with normal vascular flow. No adnexal free fluid. Stable complex cyst measuring 2.1 cm. LEFT ADNEXA: Normal ovary with normal vascular flow. No adnexal free fluid. No adnexal masses. FREE FLUID: None. OTHER: No other significant finding. IMPRESSION: LIVING INTRAUTERINE . EGA 7 WEEK 6 DAY. SUBCHORIONIC BLEED WHICH HAS DECREASED IN SIZE FROM THE PRIOR STUDY. 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 Trimester of : First - 0 to 13 weeks. TECHNICAL DOCUMENTATION: JOB ID: [id number] [employer]- All Rights Reserved
[2017-08-08 15:32] VITALS: BP 128/74
== END 2017-08-08 15:32 | disposition home or self-care (01) ==
LOC: ER 10:42
DX: O34.81 Maternal care for other abnormalities of pelvic organs, first trimester (principal); N83.11 Corpus luteum cyst of right ovary; O20.8 Other hemorrhage in early pregnancy; O26.891 Other specified pregnancy related conditions, first trimester; R10.31 Right lower quadrant pain; O99.511 Diseases of the respiratory system complicating pregnancy, first trimester; J45.909 Unspecified asthma, uncomplicated; Z3A.01 Less than 8 weeks gestation of pregnancy; Z91.040 Latex allergy status; Z87.59 Personal history of other complications of pregnancy, childbirth and the puerperium
CPT/HCPCS: 36415; 76817; 84702; 99284

== ENCOUNTER 2017-08-27 19:31 | Emergency (ER) | payer SELFPAY ==
[2017-08-27] MEDS ORDERED: ALBUTEROL SULFATE 0.083% NEB 2.5 MG/3 ML AMPUL NEB ONE (20:23)
--- NOTE | 2017-08-27 20:27 | ER Document Report ---
ED General - General Chief Complaint: Cough Stated Complaint: COUGH,HEADACHE,VOMITING TRAVEL OUTSIDE OF THE [place] IN LAST 30 DAYS: No - HPI Notes: 22 yr old 11 week female with complaints of fever, dry cough x 2 days. dx with the flu x 1 weeks ago. hx of asthma. is not taking loratadine as was directed. recently around cats. Denies any cp, sob, n/v /d, abd pain, dysuria and hematuria. no otc meds tried. Patient states she took Tylenol for her fever, which used prior to her coming. Eating and drinking ok. denies any rashes. denies any wheezing. nothing makes better, states non-smoker. Denies any rashes. Vaccinations are up today, however did not get her flu vaccination. Denies any pelvic or vaginal pain or discharge. History of first trimester miscarriages and . - Related Data Allergies/Adverse Reactions: latex Allergy (Verified 08/08/17 11:04) Past Medical History - General Information source: Patient, Relative - Social History Smoking Status: Unknown if Ever Smoked Family History: Reviewed & Not Pertinent Pulmonary Medical History: Reports: Hx Asthma Renal/ Medical History: Denies: Hx Peritoneal Dialysis Past Surgical History: Reports: Hx Section, Hx Tonsillectomy - adenoids - Immunizations Immunizations up to date: Yes Hx Diphtheria, Pertussis, Tetanus Vaccination: Yes Review of Systems - Review of Systems Constitutional: No symptoms reported EENT: See HPI Cardiovascular: No symptoms reported Respiratory: No symptoms reported Gastrointestinal: No symptoms reported Genitourinary: No symptoms reported Female Genitourinary: No symptoms reported Musculoskeletal: No symptoms reported Skin: No symptoms reported Hematologic/Lymphatic: No symptoms reported Neurological/Psychological: No symptoms reported Physical Exam - Vital signs Vitals: Temp Pulse Resp BP Pulse Ox 97.7 F 132 H 14 123/81 98 08/27/17 19:51 08/27/17 19:51 08/27/17 19:51 08/27/17 19:51 08/27/17 19:51 Interpretation: Normal, Tachycardic - Notes Notes: PHYSICAL EXAMINATION: GENERAL: Well-appearing, well-nourished and in no acute distress. HEAD: Atraumatic, normocephalic. EYES: Pupils equal round and reactive to light, extraocular movements intact, conjunctiva are normal. ENT: tympanic membranes are normal appearing with pearly color, normal- appearing landmarks and normal light reflex. Hearing is grossly intact. The nasal mucosa is moist. The septum is midline. There is no evidence of septal hematoma. The turbinates boggy. No obvious abnormalities to the lips. The teeth are unremarkable. The gingivae are without any obvious evidence of infection. The oral mucosa is moist and pink. There are no obvious masses to the hard or soft palate. The uvula is midline. The salivary glands appear unremarkable. The tongue is midline. The posterior pharynx is without erythema or exudate. The tonsils are normal appearing . rhinorrhea, nasal congestion, allergic shiners bilaterally NECK: Normal range of motion, supple without lymphadenopathy LUNGS: Breath sounds clear to auscultation bilaterally and equal. No wheezes rales or rhonchi. HEART: Regular rate and rhythm without murmurs ABDOMEN: Soft, nontender, nondistended abdomen. No guarding, no rebound. No masses appreciated. Female : deferred Musculoskeletal: Normal range of motion, no pitting or edema. No cyanosis. NEUROLOGICAL: Cranial nerves grossly intact. Normal speech, normal gait. Normal sensory, motor exams PSYCH: Normal mood, normal affect. SKIN: Warm, Dry, normal turgor, no rashes or lesions noted. Course - Re-evaluation Re-evalutation: Rechecked the patient who is resting comfortably. On re-exam, patient is symptomatically improved. Discussed the results of the labs as well as the diagnosis at great length. Patient responded to Tylenol that she previously took before arriving to ER with a reduction in her fever. Influenza and rapid strep negative. likely this is of a viral etiology. Tamiflu is a category C. patient does not appear in any discomfort, with her primary complaint being cough. Advised her to increase oral fluids, take ibuprofen as directed, follow- up with her primary care within 24 hours. Discussed the need to return to the ER for any new or worsening sx. All questions answered. Patient comfortable with the decision to go home. - Vital Signs Vital signs: Temp Pulse Resp BP Pulse Ox 97.7 F 132 H 14 123/81 98 08/27/17 19:51 08/27/17 19:51 08/27/17 19:51 08/27/17 19:51 08/27/17 19:51 Discharge - Discharge Clinical Impression: Viral syndrome Condition: Good Disposition: HOME, SELF-CARE Instructions: Fever ([facility]), Viral Syndrome ([facility], [facility]) Additional Instructions: Viral Syndrome The physician has diagnosed a viral infection. Viruses not only cause "colds," but can cause many different symptoms including generalized aching, fever, headache, cough, diarrhea, nausea, vomiting, and fatigue. The treatment, for the most part, is simply relief of symptoms. This means that antibiotics are usually not given. Rest, fluids, pain medications and, occasionally, medication for the specific symptoms that are most bothersome will be prescribed. Use good handwashing to avoid passing the virus to others. Shared toys should be cleaned with disinfectant. Clean the toilets, sinks, and counter surfaces in bathrooms. Launder clothing in hot water. Contact the physician if you develop any new or unusual symptoms such as severe headache, stiff neck, high fever, chest pain, productive cough, or shortness of breath. You should be rechecked if you don't see marked improvement within seven to 10 days. advised to return to the ER if any signs or symptoms became worse. Take over- the-counter Tylenol as needed for any fevers or pain. Follow up with primary care within 1-2 days. Follow-up with [facility] within 24 hours.. All questions and concerns answered by this provider. Patient/family states would follow plan of care and agreed to plan of care. Patient was discharged home and off unit without incident. Please excuse any errors in this document was done by bridgetteon dictation Referrals: LAVELLE MENJIVAR MD [[facility]ED STAFF] - Follow up as needed
[2017-08-27 21:31] LABS: A TYPE INFLUENZA AG NEGATIVE (NEGATIVE); B INFLUENZA AG NEGATIVE (NEGATIVE)
[2017-08-27 22:21] VITALS: BP 131/81
== END 2017-08-27 22:21 | disposition home or self-care (01) ==
LOC: ER 19:31
DX: O98.511 Other viral diseases complicating pregnancy, first trimester (principal); B34.9 Viral infection, unspecified; O26.891 Other specified pregnancy related conditions, first trimester; R05 Cough; O99.511 Diseases of the respiratory system complicating pregnancy, first trimester; J45.909 Unspecified asthma, uncomplicated; Z3A.11 11 weeks gestation of pregnancy; Z91.040 Latex allergy status
CPT/HCPCS: 87070; 87804; 87880; 94640; 99283

== ENCOUNTER 2018-03-29 02:45 | Emergency (ER) | payer SELFPAY ==
[2018-03-29 03:39] LABS: APPEARANCE,URINE SLIGHTLY-CLOUDY; BILIRUBIN,URINE NEGATIVE (NEGATIVE); COLOR,URINE YELLOW; GLUCOSE, URINE NEGATIVE (NEGATIVE); KETONES,URINE NEGATIVE (NEGATIVE); LEUKOCYTE ESTERASE,URINE TRACE (NEGATIVE); NITRITE,URINE NEGATIVE (NEGATIVE); PROTEIN,URINE NEGATIVE (NEGATIVE); URINE SPECIFIC GRAVITY 1.017; UROBILINOGEN,URINE NEGATIVE mg/dL (<2.0)
--- NOTE | 2018-03-29 03:47 | ER Document Report ---
ED GI/ - General Chief Complaint: Vaginal Bleeding Stated Complaint: VAGINAL BLEEDING/ABDOMINAL PAIN Time Seen by Provider: 03/29/18 03:38 Notes: Patient is a 23-year-old female, A4 at 10 weeks gestation by last menstrual period, that comes emergency department for chief complaint of abdominal cramping that started today and vaginal spotting since yesterday. She denies injury, fever or chills, dysuria or vaginal discharge. She has had intermittent vomiting but she states this has not been more than her usual first trimester pregnancies. Only medical history reported is Asperger's, C- section, tonsillectomy. TRAVEL OUTSIDE OF THE [place] IN LAST 30 DAYS: No - Related Data Allergies/Adverse Reactions: latex Allergy (Verified 08/08/17 11:04) Past Medical History - General Information source: Patient - Social History Smoking Status: Never Smoker Frequency of alcohol use: None Drug Abuse: None Lives with: Family Family History: Reviewed & Not Pertinent Pulmonary Medical History: Reports: Hx Asthma Renal/ Medical History: Denies: Hx Peritoneal Dialysis Past Surgical History: Reports: Hx Section, Hx Tonsillectomy - adenoids - Immunizations Immunizations up to date: Yes Hx Diphtheria, Pertussis, Tetanus Vaccination: Yes Review of Systems - Review of Systems Constitutional: No symptoms reported EENT: No symptoms reported Cardiovascular: No symptoms reported Respiratory: No symptoms reported Gastrointestinal: See HPI Genitourinary: No symptoms reported Female Genitourinary: See HPI Musculoskeletal: No symptoms reported Skin: No symptoms reported Hematologic/Lymphatic: No symptoms reported Neurological/Psychological: No symptoms reported Physical Exam - Vital signs Vitals: Temp Pulse Resp BP Pulse Ox 98.1 F 107 H 16 133/86 H 97 03/29/18 02:51 03/29/18 02:51 03/29/18 02:51 03/29/18 02:51 03/29/18 02:51 - Notes Notes: GENERAL: Alert, interacts well. No acute distress. HEAD: Normocephalic, atraumatic. EYES: Pupils equal, round, and reactive to light. Extraocular movements intact. ENT: Oral mucosa moist, tongue midline. NECK: Full range of motion. Supple. Trachea midline. LUNGS: Clear to auscultation bilaterally, no wheezes, rales, or rhonchi. No respiratory distress. HEART: Regular rate and rhythm. No murmur. Patient is not tachycardic on my exam. ABDOMEN: Soft, non-tender. Non-distended. Bowel sounds present in all 4 quadrants. EXTREMITIES: Moves all 4 extremities spontaneously. No edema, normal radial and dorsalis pedis pulses bilaterally. No cyanosis. BACK: no cervical, thoracic, lumbar midline tenderness. No saddle anesthesia, normal distal neurovascular exam. NEUROLOGICAL: Alert and oriented x3. Normal speech. [cranial nerves II through XII grossly intact]. PSYCH: Normal affect, normal mood. SKIN: Warm, dry, normal turgor. No rashes or lesions noted. Course - Re-evaluation Re-evalutation: Nontender examination of the abdomen, no tachycardia on my exam, patient smiling , laughing, well-appearing. CBC unremarkable, urine nonspecific, hCG is appropriately elevated, RhoGam is not indicated. Ultrasound showing subchorionic hemorrhage, living intrauterine gestation, no other abnormalities. Patient remains very well-appearing on reexamination. Discussed results, precautions, follow-up, return precautions. Patient will be treated for nausea because of her frequent vomiting with morning sickness. Patient states satisfaction and agreement with plan. Patient requests Zofran because she has had good results with this in the past. - Vital Signs Vital signs: Temp Pulse Resp BP Pulse Ox 98.1 F 107 H 16 118/80 99 03/29/18 02:51 03/29/18 02:51 03/29/18 02:51 03/29/18 04:31 03/29/18 04:26 - Laboratory Result Diagrams: 03/29/18 04:24 Laboratory results interpreted by me: 03/29/18 03/29/18 03/29/18 03:24 04:24 04:24 Hct 35.4 L Beta HCG, Quant 25083.00 H Urine Blood SMALL H Ur Leukocyte Esterase TRACE H Urine HCG, Qual POSITIVE H Discharge - Discharge Clinical Impression: Vaginal bleeding affecting early Condition: Stable Disposition: HOME, SELF-CARE Additional Instructions: Your ultrasound shows a subchorionic bleed as we discussed. Perform comfort precautions including no sexual intercourse, no significant physical exertion such as lifting, jumping, running. Follow closely with [facility] for additional evaluation and management. Return to the emergency department for any concerning or worsening symptoms including heavy bleeding, passing out, severe pain, fever, or any other concerning symptoms. Prescriptions: Ondansetron [Zofran Odt 4 mg Tablet] 1 - 2 tab PO Q4H PRN #30 tab.rapdis PRN Reason: For Nausea/Vomiting Referrals: LINDA MONTEJO APRN [NO LOCAL MD] - Follow up as needed
[2018-03-29 04:42] LABS: ABSOLUTE EOSINOPHILS # (AUTO) 0.3 10^3/uL (0.0-0.6); ABSOLUTE LYMPHOCYTES (AUTO) 2.6 10^3/uL (0.5-4.7); ABSOLUTE MONOCYTES (AUTO) 0.6 10^3/uL (0.1-1.4); ABSOLUTE NEUT (AUTO) 5.5 10^3/uL (1.7-8.2); BASOPHILS % (AUTO) 0.5 % (0-2); HEMATOCRIT 35.4 % (36.0-47.0); HEMOGLOBIN 12.4 g/dL (12.0-15.5); LYMPHOCYTES % (AUTO) 28.7 % (13-45); MEAN CORPUSCULAR HEMOGLOBIN 29.1 pg (27.0-33.4); MEAN CORPUSCULAR HGB CONC 34.9 g/dL (32.0-36.0); MEAN CORPUSCULAR VOLUME 83 fl (80-97); PLATELET COUNT 263 10^3/uL (150-450); RED BLOOD COUNT 4.25 10^6/uL (3.72-5.28); SEGMENTED NEUTROPHILS % (AUTO) 60.8 % (42-78); TOTAL CELLS COUNTED % (AUTO) 100 %; WHITE BLOOD COUNT 9.1 10^3/uL (4.0-10.5)
--- NOTE | 2018-03-29 05:14 | RADIOLOGY REPORT (SQ) ---
EXAM DESCRIPTION: US TRANSVAGINAL COMPLETED DATE/TME: 03/29/2018 03:44 CLINICAL HISTORY: 23 years Female, abd cramping, vaginal bleeding, Comparison: None. TECHNIQUE: Transvaginal. LIMITATIONS: None. FINDINGS: Living intrauterine fetus measures 10w4d with KULWINDER of . Cardiac activity is 171-bpm. [place]-rump length is 3.6-cm. 4.8 x 0.4 x 0.6-cm perigestational hemorrhage. Ovaries not visualized, 3.1-cm cervical length, and no free fluid. IMPRESSION: Living 1st trimester intrauterine gestation. 4.8 x 0.6-cm perigestational hemorrhage.
[2018-03-29] MEDS ORDERED: ONDANSETRON ODT 4 MG TAB (6 TAB/ER DISP) PO PRN (05:36)
[2018-03-29 07:03] VITALS: BP 103/55
== END 2018-03-29 05:53 | disposition home or self-care (01) ==
LOC: ER 02:45
DX: O20.8 Other hemorrhage in early pregnancy (principal); O21.9 Vomiting of pregnancy, unspecified; O26.891 Other specified pregnancy related conditions, first trimester; R10.9 Unspecified abdominal pain; O99.511 Diseases of the respiratory system complicating pregnancy, first trimester; J45.909 Unspecified asthma, uncomplicated; Z3A.10 10 weeks gestation of pregnancy; Z91.040 Latex allergy status
CPT/HCPCS: 36415; 76817; 81001; 81025; 84702; 85025; 86900; 86901; 93976; 99284